=== PATIENT | male | born 1935 | race Caucasian/White ===

== ENCOUNTER 2017-09-26 12:29 | Outpatient (CLI) | payer MEDICARE, OTHER | END 2017-09-26 12:30 | disposition home or self-care (01) | LOC: LAB 12:29 | PROVIDERS: ATTEND Internal Medicine | DX: E03.9 Hypothyroidism, unspecified (principal) | CPT/HCPCS: 36415; 84443 ==

== ENCOUNTER 2018-02-25 15:22 | Outpatient (CLI) | payer MEDICARE, OTHER ==
[2018-02-25 17:18] LABS: PSA TOTAL 1.66 ng/mL (0.000-2.000)
== END 2018-02-25 15:23 | disposition home or self-care (01) ==
LOC: LAB 15:22
PROVIDERS: ATTEND Urology
DX: C61 Malignant neoplasm of prostate (principal)
CPT/HCPCS: 36415; 84153; 84403